=== PATIENT | male | born 1940 | race Caucasian/White ===

== ENCOUNTER → 2017-03-03 | Outpatient (CLI) | payer MEDICARE, OTHER | END | disposition home or self-care (01) | LOC: Rad HDHVI 10:32 | PROVIDERS: ATTEND Internal Medicine Cardiovascular Disease | DX: M16.0 Bilateral primary osteoarthritis of hip (principal); M25.752 Osteophyte, left hip; M25.751 Osteophyte, right hip ==

== ENCOUNTER → 2017-04-06 | Outpatient (CLI) | payer MEDICARE, OTHER ==
[2017-04-06 12:13] LABS: Urine Bilirubin Negative (Negative); Urine Blood Negative /uL (Negative); Urine Color Yellow (Yellow); Urine Glucose Normal (Normal); Urine Ketone Negative (Negative); Urine Nitrite Negative (Negative)
[2017-04-06 12:19] LABS: Basophils # (auto) 0 uL; Basophils % (auto) 0.4 % (0.0-2.0); CONDITION Y; DEFINITIVE SEE PRINTOUT; Eosinophils # (auto) 0.2 uL; Eosinophils % (auto) 3.7 % (0.0-7.0); Hematocrit 45.9 % (41.0-53.0); Hemoglobin 15.6 g/dL (13.5-17.5); Lymphocytes # (auto) 1.9 uL; Lymphocytes % (auto) 35.4 % (10.0-50.0); Mean Platelet Volume 8.2 fL (7.4-10.4); Monocytes # (auto) 0.5 uL; Monocytes % (auto) 8.8 % (0.0-12.0); Neutrophils # (auto) 2.7 uL; Neutrophils % (auto) 51.7 % (37.0-80.0); Platelet Count (auto) 281 10^3/uL (140-450); Red Cell Distribution Width 13.9 % (11.6-16.0); White Blood Cell 5.3 10^3/uL (4.4-10.8)
[2017-04-06 12:59] LABS: Alkaline Phosphatase 74 U/L (45-117); Anion Gap 7 (5-15); Aspartate Aminotransferase 14 U/L (15-37); BUN/Creatinine Ratio 21.1; Bilirubin, Direct < 0.1 mg/dL (0-0.2); Bilirubin, Total 0.3 mg/dL (0.2-1.0); Blood Urea Nitrogen 23 mg/dL (7-18); Calcium 9.5 mg/dL (8.5-10.1); Carbon Dioxide 24 mmol/L (21-32); Chloride 109 mmol/L (98-107); Cholesterol 198 mg/dL (< 200); GFR African American 85 mL/min; GFR Non-African American 70 mL/min; Glucose 89 mg/dL (74-106); HDL Cholesterol 63 mg/dL (40-59); LDL Cholesterol 119 mg/dL (< 100); Potassium 4.3 mmol/L (3.5-5.1); Sodium 140 mmol/L (136-145); Total Protein 7.2 g/dL (6.4-8.2); Triglycerides 104 mg/dL (< 150)
== END | disposition home or self-care (01) ==
LOC: LAB 08:29
PROVIDERS: ATTEND Internal Medicine Cardiovascular Disease
DX: I10 Essential (primary) hypertension (principal); E78.00 Pure hypercholesterolemia, unspecified; K74.1 Hepatic sclerosis; E11.9 Type 2 diabetes mellitus without complications; R97.20 Elevated prostate specific antigen [PSA]; E03.9 Hypothyroidism, unspecified; D64.9 Anemia, unspecified; N39.0 Urinary tract infection, site not specified
CPT/HCPCS: 36415; 80048; 80061; 80076; 81003; 82306; 83036; 84153; 84443; 85025

== ENCOUNTER → 2017-06-02 | Outpatient (CLI) | payer MEDICARE, OTHER | END | disposition home or self-care (01) | LOC: Rad HDHVI 12:53 | PROVIDERS: ATTEND Internal Medicine Cardiovascular Disease | DX: J44.9 Chronic obstructive pulmonary disease, unspecified (principal) | CPT/HCPCS: 93306 ==

== ENCOUNTER → 2017-06-09 | Outpatient (CLI) | payer MEDICARE, OTHER ==
[~2017-06-09] MED LIST: ADENOSINE 60 MG in GIVE UN-DILUTED 0 ML IV ONE; ADENOSINE 90 MG/30 ML INJ IV ONE; cloNIDine HCL 0.1 MG TAB ONE
[2017-06-09 16:40] LABS: Basophils # (auto) 0 uL; Eosinophils # (auto) 0.1 uL; Eosinophils % (auto) 2.4 % (0.0-7.0); Hemoglobin 13.9 g/dL (13.5-17.5); Lymphocytes # (auto) 1.6 uL; Lymphocytes % (auto) 29.5 % (10.0-50.0); Mean Platelet Volume 7.5 fL (6.9-10.8); Monocytes # (auto) 0.4 uL; Platelet Count (auto) 244 10^3/uL (140-450); White Blood Cell 5.3 10^3/uL (4.4-10.8)
[2017-06-09 16:42] LABS: Basophils % (auto) 0.7 % (0.0-2.0); Hematocrit 40.3 % (41.0-53.0); Mean Corpuscular Hgb Conc. 34.5 g/dL (32.0-36.0); Mean Corpuscular Volume 104.2 fL (80.0-100.0); Monocytes % (auto) 8.4 % (0.0-12.0); Neutrophils # (auto) 3.1 uL; Nucleated Red Blood Cells % 0.3 %; Red Cell Distribution Width 13.1 % (11.8-14.3)
[2017-06-09 16:48] LABS: BUN/Creatinine Ratio 21.8; Bilirubin, Total 0.6 mg/dL (0.2-1.0); Calcium 9.1 mg/dL (8.5-10.1); Potassium 4.2 mmol/L (3.5-5.1); Total Protein 7.1 g/dL (6.4-8.2)
[2017-06-09 17:03] LABS: Vitamin B12 > 2000 pg/mL (211-911)
== END | disposition home or self-care (01) ==
LOC: Rad HDHVI 08:21
PROVIDERS: ATTEND Internal Medicine Cardiovascular Disease
DX: I10 Essential (primary) hypertension (principal); E78.00 Pure hypercholesterolemia, unspecified; K74.1 Hepatic sclerosis; E11.9 Type 2 diabetes mellitus without complications; R97.20 Elevated prostate specific antigen [PSA]; R53.81 Other malaise; E03.9 Hypothyroidism, unspecified; D64.9 Anemia, unspecified; E55.9 Vitamin D deficiency, unspecified; N39.0 Urinary tract infection, site not specified; E78.5 Hyperlipidemia, unspecified; K40.90 Unilateral inguinal hernia, without obstruction or gangrene, not specified as recurrent; J44.9 Chronic obstructive pulmonary disease, unspecified; G89.29 Other chronic pain
CPT/HCPCS: 36415; 78452; 80053; 80061; 82306; 82607; 83036; 84403; 84439; 84443; 85025; 93005; 96374; 96375; A9500; J0153

== ENCOUNTER → 2017-08-26 | Outpatient (CLI) | payer MEDICARE, OTHER ==
[~2017-08-26] MED LIST changes: -ADENOSINE 60 MG in GIVE UN-DILUTED 0 ML IV ONE; -ADENOSINE 90 MG/30 ML INJ IV ONE; +KETOROLAC TROMETH 60MG/2ML VIAL IM ONE; +cloNIDine HCL 0.1 MG TAB PO ONE
[2017-08-26 11:50] VITALS: BP 185/105
[2017-08-26 12:47] VITALS: BP 171/92
== END | disposition home or self-care (01) ==
LOC: CHF HDHVI 11:55
PROVIDERS: ATTEND Internal Medicine Cardiovascular Disease
DX: I10 Essential (primary) hypertension (principal); G89.29 Other chronic pain
CPT/HCPCS: 96372; G0463; J1885

== ENCOUNTER 2020-03-27 10:32 | Inpatient (IN) | payer MEDICARE, OTHER ==
[~2020-03-27] VITALS: Ht 162.6 cm; Wt 57.7 kg
[2020-03-27] MEDS ORDERED: MORPHINE SULF INJ 2 MG/ML SYRINGE 1ML IV PRN (12:00)
[2020-03-27] MEDS ORDERED: NITROGLYCERIN 0.4 MG SL TAB SL PRN (12:00)
[2020-03-27 12:01] LABS: Basophils # (auto) 0 10 ^3/uL (0-0.2); Basophils % (auto) 0.4 % (0.0-2.0); Eosinophils # (auto) 0.1 10 ^3/uL (0-0.8); Eosinophils % (auto) 0.6 % (0.0-7.0); Hematocrit 43.2 % (41.0-53.0); Mean Corpuscular Hgb Conc. 31.8 g/dL (32.0-36.0); Monocytes # (auto) 0.9 10 ^3/uL (0-1.3)
[2020-03-27 12:07] LABS: Hemoglobin 13.8 g/dL (13.5-17.5); Lymphocytes # (auto) 1.5 10 ^3/uL (0.4-5.4); Lymphocytes % (auto) 17.1 % (10.0-50.0); Mean Corpuscular Hemoglobin 33.5 pg (28.0-32.0); Mean Corpuscular Volume 105.1 fL (80.0-100.0); Monocytes % (auto) 10.8 % (0.0-12.0); Neutrophils # (auto) 6.1 10 ^3/uL (1.6-8.6); Neutrophils % (auto) 71.1 % (37.0-80.0); Platelet Count (auto) 403 10^3/uL (140-450); Red Blood Cells 4.11 10^6/uL (4.5-5.90); Red Cell Distribution Width 14.6 % (11.8-14.3); White Blood Cell 8.5 10^3/uL (4.4-10.8)
[2020-03-27 12:13] LABS: Albumin 3.1 g/dL (3.4-5.0); Anion Gap 10 (5-15); Blood Urea Nitrogen 22 mg/dL (7-18); Calcium 9.3 mg/dL (8.5-10.1); Carbon Dioxide 20 mmol/L (21-32); Chloride 106 mmol/L (98-107); Glucose 97 mg/dL (74-106); Potassium 3.8 mmol/L (3.5-5.1); Sodium 136 mmol/L (136-145)
[2020-03-27] MEDS ORDERED: SODIUM CHLORIDE 0.9% 500 ML IVB ONE (12:16)
[2020-03-27] MEDS ORDERED: SODIUM CHLORIDE 0.9% 1,000 ML IV ONE (12:16)
[2020-03-27 12:21] LABS: Alanine Aminotransferase 19 U/L (16-61); Alkaline Phosphatase 94 U/L (45-117); Aspartate Aminotransferase 15 U/L (15-37); Bilirubin, Total 0.6 mg/dL (0.2-1.0); GFR African American 91 mL/min; GFR Non-African American 75 mL/min; Total Protein 7.2 g/dL (6.4-8.2)
[2020-03-27 12:35] LABS: BUN/Creatinine Ratio 21.6
[2020-03-27] MEDS ORDERED: CYANOCOBALAMIN (B-12) 1000 MCG/1 ML VIAL IM ONE (13:30)
[2020-03-27] MEDS: GABAPENTIN 300 MG CAP PO SCH ×2 (14:00→22:00)
[2020-03-27] MEDS: amLODIPine BESYLATE 5 MG TAB PO SCH ×2 (14:00→22:46)
[2020-03-27 14:54] LABS: INR 1.19 (0.9-1.15); Partial Thromboplastin Time 28.8 sec (23.64-32.05)
[2020-03-27 15:00] LABS: Lactic Acid w/Reflex 3.4 mmol/L (0.4-2.0)
[2020-03-27] MEDS ORDERED: HYDR-531 PO (15:14)
[2020-03-27] MEDS ORDERED: B CO PO (15:14)
[2020-03-27] MEDS ORDERED: PRAV20TA3 PO (15:14)
[2020-03-27] MEDS ORDERED: ACET-1080 PO (15:14)
[2020-03-27] MEDS ORDERED: UMEC1AER IN (15:14)
[2020-03-27] MEDS ORDERED: TAMS0.4C36 PO (15:14)
[2020-03-27] MEDS ORDERED: AMLO-483 PO (15:14)
[2020-03-27] MEDS ORDERED: LEVO-28 PO (15:14)
[2020-03-27] MEDS ORDERED: ALBUAER3 IN (15:14)
[2020-03-27] MEDS ORDERED: DOXY100C2 PO (15:14)
[2020-03-27] MEDS ORDERED: METO25TA93 PO (15:14)
[2020-03-27] MEDS ORDERED: LOSA-69 PO (15:21)
[2020-03-27] MEDS ORDERED: CYCL10TA6 PO (15:22)
--- NOTE | 2020-03-27 18:00 | NUR ---
ER ADMIT PREMA JONES ADMITTED FROM ER MEDSURG PATIENT, PATIENT ALERT TO SITUATION, UNABLE TO ANSWER QUESTIONS. NODS AND MOANS. FULL ASSESSMENT DONE, REFER TO INTERVENTION. GUTIERREZ HUNG TO GRAVITY AND DRAINING DARK MAGGIE URINE. WOUND PHOTOS TAKEN. BED ALARM ON. BED AR ITS LOWEST POSITION.
--- NOTE | 2020-03-27 18:15 | NUR ---
DR CROWE AT BED SIDE
--- NOTE | 2020-03-27 19:30 | NUR ---
Opening Shift Note Assumed care of patient, awake and confused. No S/S of distress/SOB or pain. will continue to monitor for changes Q1hr and PRN.pt is on bed alarm
--- NOTE | 2020-03-27 19:30 | NUR ---
ATTEMPTED TO CALL [facility] LISTED ON PATIENTS HARD CHART NASEEM SOSA/ROBERT COLEMAN AT [phone]//[phone] FOR ADDITIONAL ADMISSION QUESTIONS. NO ANSWER ON EITHER LINE. QUICK MESSAGE WITH BEST EXT LEFT. WILL AWAIT CALL BACK.
[2020-03-27 19:50] VITALS: BP 145/93
--- NOTE | 2020-03-27 20:00 | NUR ---
NEW ORDERS RECEIVED FROM MD NAVARRO. REFER TO ORDER HX.
[2020-03-27] MEDS: FOLIC ACID 1 MG, MULTIPLE VITAMIN 10 ML, MAGNESIUM SULF SDV 50% 8 MEQ, THIAMINE INJ 100... INJ SCH ×5 (20:07)
[2020-03-27 21:04] LABS: Alcohol, Urine < 3.0 mg/dL (0-10); Amphetamine Screen, Urine NEGATIVE (NEGATIVE); Barbiturate Scree,Urine NEGATIVE (NEGATIVE); Benzodiazephine Screen, Urine NEGATIVE (NEGATIVE); Cannabinoid Screen, Urine NEGATIVE (NEGATIVE); Cocaine Screen, Urine NEGATIVE (NEGATIVE); Phencyclidine Screen, Urine NEGATIVE (NEGATIVE)
[2020-03-27 21:12] LABS: Urine Bacteria NONE SEEN /hpf (None Seen); Urine Blood 3+ /uL (Negative); Urine Hyaline Cast MANY /lpf (0 - 2); Urine Mucus FEW (None Seen); Urine Specific Gravity 1.018 (1.001-1.035); Urine WBC 33 /hpf (0 - 3)
[2020-03-27 21:14] LABS: Opiate Scree,Urine POSITIVE (NEGATIVE)
[2020-03-27] MEDS: METOPROLOL SUCCINATE XL 50 MG TAB PO SCH (22:47)
[2020-03-27 22:50] VITALS: BP 157/105
[2020-03-28 05:48] VITALS: BP 155/109
[2020-03-28] MEDS: GABAPENTIN 300 MG CAP PO SCH ×3 (06:00→22:00)
[2020-03-28] MEDS: LORazepam 2MG/ML-1ML VIAL IV PRN ×2 (06:02→20:25)
[2020-03-28] MEDS: amLODIPine BESYLATE 5 MG TAB PO SCH ×3 (06:04→22:00)
[2020-03-28 09:00] VITALS: BP 152/101
[2020-03-28] MEDS: ENOXAPARIN SOD 40 MG/0.4 ML SYRINGE SC SCH (09:27)
[2020-03-28] MEDS: chlordiazePOXIDE HCL 25 MG CAP PO PRN (09:27)
[2020-03-28] MEDS: METOPROLOL SUCCINATE XL 50 MG TAB PO SCH (09:27)
--- NOTE | 2020-03-28 10:00 | NUR ---
DR. NAVARRO AT BED SIDE
--- NOTE | 2020-03-28 10:23 | NUR ---
IN HOUSE COVID SWAB COLLECTED AND WALKED DOWN TO LAB PER PROTOCOL
--- NOTE | 2020-03-28 10:30 | NUR ---
remote control mirror installer at bed side
[2020-03-28 10:33] LABS: Basophils # (auto) 0 10 ^3/uL (0-0.2); Basophils % (auto) 0.6 % (0.0-2.0); Eosinophils # (auto) 0 10 ^3/uL (0-0.8); Eosinophils % (auto) 0.5 % (0.0-7.0); Hematocrit 37.5 % (41.0-53.0); Hemoglobin 12.7 g/dL (13.5-17.5); Lymphocytes # (auto) 1.2 10 ^3/uL (0.4-5.4); Lymphocytes % (auto) 17.5 % (10.0-50.0); Mean Corpuscular Hemoglobin 33.5 pg (28.0-32.0); Mean Corpuscular Hgb Conc. 33.9 g/dL (32.0-36.0); Mean Corpuscular Volume 98.8 fL (80.0-100.0); Monocytes # (auto) 0.6 10 ^3/uL (0-1.3); Monocytes % (auto) 8.8 % (0.0-12.0); Neutrophils % (auto) 72.6 % (37.0-80.0); Platelet Count (auto) 350 10^3/uL (140-450); Red Cell Distribution Width 14.5 % (11.8-14.3); White Blood Cell 6.9 10^3/uL (4.4-10.8)
--- NOTE | 2020-03-28 10:38 | NUR ---
WOUND CARE NOTE: Wound care in to see patient per wound care request regarding "Rt Buttock wound" that are noted present on admission. Bedside nurse took photograph of patient's wounds upon admission for reference. Patient is 79 years old male with admitting diagnosis of Severe Deconditioning, Delirium Tremens. Patient is resting in bed in Rm. 288A. Patient's eyes are closed, respond to verbal and tactile stimuli. Patient appears to be in no pain using Ortiz Nicholson Faces Pain Scale. He's resisting turning and repositioning and his Ronal score is 11. Skin assessment done with the assistance of patient's nurse, JESUS Thurman. Patient noted with 1.5x1cm open partial thickness skin tear to Rt posterolateral hip/buttock area. Wound is red with pink myla wound, no drainage/odor noted. Cleansed patient's Rt buttock skins tear with NS,patted dry with gauze, applied Thera honey gel and covered with Opti foam gentle dressing. Patient's sacral, buttock applied with Barrier cream as preventative. Intact pink scar tissue from old incision noted to his Rt lateral hip. Patient's posterior back has well approximated incision with intact sutures, area is clean and dry,left open to air. Patient tolerated well, repositioned for comfort facing his Rt side, redistributed pressure points with pillows. Bed in low position, bed alarm on. RECOMMENDATION: Nursing to continue with Q3D/PRN dressing change to R hip/buttock skin tear, BID/PRN cleaning and application of Barrier cream to sacral, buttocks per MD order, frequent turning and repositioning schedule as condition permits,redistribute pressure points with pillows, continue monitoring by wound care while patient is hospitalized. Addendum: 03/28/20 at 1324 by María Sterling RN Amended: Links added.
[2020-03-28 10:48] LABS: Albumin 3.1 g/dL (3.4-5.0); Calcium 8.7 mg/dL (8.5-10.1); Potassium 3.8 mmol/L (3.5-5.1)
[2020-03-28 10:52] LABS: BUN/Creatinine Ratio 31.6; Bilirubin, Total 0.6 mg/dL (0.2-1.0); Total Protein 6.3 g/dL (6.4-8.2)
[2020-03-28] MEDS: FOLIC ACID 1 MG, MULTIPLE VITAMIN 10 ML, MAGNESIUM SULF SDV 50% 8 MEQ, THIAMINE INJ 100... INJ SCH ×5 (12:07)
--- NOTE | 2020-03-28 12:14 | NUR ---
RE SOCIAL SERVICE CONSULT RECEIVED CALL FROM ELMA EUCEDA, STATING SHE HAS SPOKEN TO JESSICA (PATIENTS ) AND PER JARED'S REQUEST NEED UPDATE ON PENDING PICC LINE CONSULT AND NUTRITION STATUS BEFORE PATIENT IS DISCHARGED TO SNF. UPDATED ELMA ON PENDING PICC LINE PLACEMENT WELL NEURO CONSULT FOR MENTATION ASSESSMENT. WILL CALL MD TO INFORM FAMILYS CONCERNS.
--- NOTE | 2020-03-28 12:20 | NUR ---
DETAILED MESSAGE SENT TO MD NAVARRO IN REGARDS OF PICC LINE ORDER/NEEDING PHYSICIAN SIGNATURE, FAMILY'S REQUEST FOR TPN, AND NEED FOR SPECIFIC NEEDS LISTED FOR SNF ARRANGEMENT THROUGH VIDEO EFFECTS EDITOR. WILL AWAIT CALL BACK FROM .
--- NOTE | 2020-03-28 12:23 | NUR ---
Elevated BP. Call out to Dr. Renae in regards of elevated BP in despite of [facility] am med. No PRN available. Will await call back from
--- NOTE | 2020-03-28 12:30 | NUR ---
Assessment Patient is a 79-year-old male who is confused. Assessment was completed with patient Ana . Per Ana prior to admission patient live with her and functioned with assistance. Per Ana patient has a walker, cane, bed side commode, wheelchair and hospital for home use. Per Ana patient does not have home oxygen at this time. Per Ana she helps patient with his ADLs. Per Ana patient has not been eating and his primary doctor Mary recommended for her to bring patient to the hospital to evaluate patient because he has not been able to eat or swallow. Advised Ana there is a social service consult for SNF placement. Per Ana patient PCP recommended a SNF out of area and she will let me know which facility it is once she finds out. Per Ana she does not want patient to be discharge until they know why patient is not eating or swallowing. Informed Ana I will inform bedside nurse and doctor her concerns. Informed Ana she has the right to participate in all discharge planning. Ana verbalized understanding and agreed to discharge plan. Informed JESUS Thurman patient concerns. Per JESUS Thurman she will communicate it to Dr. Renae. Per JESUS Thurman there is more consults pending before patient can be discharge. Addendum: 03/28/20 at 1233 by ELMA FAUSTIN Amended: Links added.
[2020-03-28 13:00] VITALS: BP 164/111
--- NOTE | 2020-03-28 14:18 | NUR ---
MD NAVARRO AWARE OF FAMILYS CONCERNS, AND SENIOR LIBRARIAN NEEDS. PER MD, HE WILL GET BACK TO RN WITH RESPONSE TO ISSUES ADDRESSED AT A LATER TIME TODAY. WILL AWAIT CALL.
--- NOTE | 2020-03-28 14:22 | NUR ---
NEW ORDERS RECEIVED VIA TELEPHONE FOR BP CONTROL. REFER TO ORDER HX.
[2020-03-28] MEDS: hydrALAZINE HCL 20 MG/ML VL IV PRN ×2 (14:43→20:25)
--- NOTE | 2020-03-28 15:00 | NUR ---
TWO RN CONSENT FOR PICC CALL TO JARED AT [phone] TO OBTAIN CONSENT TO PICC ORDER PATIENT UNABLE TO CONSENT AT THIS TIME DUE TO ALTERED MENTAL STATUS. NO ANSWER AT THIS TIME, VOICEMAIL LEFT WITH BEST EXTENSION. WILL AWAIT CALL BACK.
--- NOTE | 2020-03-28 15:00 | NUR ---
Attempted PT eval at 1440 pt's BP was 160/110. RN medicated pt and returned at 1515, pt's BP improved to 131/77 but pt is unable to follow commands to allow for application of lumbar brace. Will attempt again tomorrow if pt is able to participate.
[2020-03-28 16:53] VITALS: BP 162/109
[2020-03-28] MEDS ORDERED: TPN PER PHARMACY 0 ML IV SCH (18:30)
--- NOTE | 2020-03-28 18:31 | NUR ---
RECEIVED CALL FROM MD TORRES WHO IS PATIENTS PCP. MD IS QUESTIONING WHY TPN HAS NOT BEEN STARTED, MADE AWARE OF ACTIVE TPN ORDER. ORDER TO START TPN PER PHARMACY RECEIVED, WILL IMPLEMENT.
--- NOTE | 2020-03-28 18:33 | NUR ---
TPN CALL TO PHARMACY TO INFORM OF NEW TPN ORDER, NO CENTRAL LINE AVAILABLE YET, THEREFORE CLINIMIX WILL BE STARTED TONIGHT AT 1999 THROUGH PERIPHERAL UNTIL PICC PLACEMENT.
[2020-03-28] MEDS: METOPROLOL TARTRATE 50 MG TAB PO SCH ×2 (18:36→22:00)
--- NOTE | 2020-03-28 19:29 | NUR ---
CARE ENDORSED TO NOC SHIFT RN ANISA RN AWARE OF NEED FOR PHYSICIAN/FAMILY CONSENT FOR PICC PLACEMENT. RN AWARE OF NEED FOR PHYSICIAN TO UPDATE SOCIAL SERVICE CONSULT WITH SPECIFIC NEEDS FOR PATIENT. \ PATIENT LAYING IN BED WITH EVEN AND UNLABORED RESPIRATIONS. NO S/S OF PAIN OR DISTRESS AT THIS TIME.
[2020-03-28] MEDS ORDERED: AMINO ACID INFUSION IN D10W 1,000 ML IV SCH (20:00)
[2020-03-28 22:49] VITALS: BP 160/110
--- NOTE | 2020-03-29 03:13 | NUR ---
.1900. 03/28/20. OBTAINED REPORT AND ASSUMED CARE OF PATIENT. 1929. PATIENT SEEN WITH GENERALIZED TREMORS AND GRABBING. 2024. MEDICATED WITH ATIVAN FOR RESTLESSNESS AND HYDRALAZINE FOR [id number] 2129. PATIENT MORE RESTFUL. 2300. PATIENT SLEEPING. 0010. 03/29/20. BP 150/88, HR 85 0300. PATIENT SLEEPING NOW. CALM. IVF NFUSING
[2020-03-29] MEDS: GABAPENTIN 300 MG CAP PO SCH ×3 (05:37→22:00)
[2020-03-29] MEDS: amLODIPine BESYLATE 5 MG TAB PO SCH ×3 (05:38→22:00)
[2020-03-29 05:42] VITALS: BP 113/63
--- NOTE | 2020-03-29 07:45 | NUR ---
Opening Shift Note Assumed care of patient, awake and alert. No S/S of distress/SOB or pain. Bed in lowest/locked position, bed rails up x2, call light within reach. Will continue to monitor for changes Q1hr and PRN.pt is on bed alarm
[2020-03-29 07:49] LABS: Basophils # (auto) 0 10 ^3/uL (0-0.2); Basophils % (auto) 0.5 % (0.0-2.0); Eosinophils # (auto) 0.1 10 ^3/uL (0-0.8); Eosinophils % (auto) 1.1 % (0.0-7.0); Hematocrit 30.7 % (41.0-53.0); Hemoglobin 10.4 g/dL (13.5-17.5); Lymphocytes # (auto) 1.2 10 ^3/uL (0.4-5.4); Lymphocytes % (auto) 19.4 % (10.0-50.0); Mean Corpuscular Hemoglobin 33.8 pg (28.0-32.0); Mean Corpuscular Hgb Conc. 33.9 g/dL (32.0-36.0); Mean Corpuscular Volume 99.8 fL (80.0-100.0); Monocytes # (auto) 0.8 10 ^3/uL (0-1.3); Monocytes % (auto) 12.7 % (0.0-12.0); Neutrophils % (auto) 66.3 % (37.0-80.0); Nucleated Red Blood Cells % 0.1 %; Platelet Count (auto) 313 10^3/uL (140-450); Red Blood Cells 3.08 10^6/uL (4.5-5.90); Red Cell Distribution Width 14.6 % (11.8-14.3)
[2020-03-29 08:12] LABS: Albumin 2.6 g/dL (3.4-5.0); Calcium 8.3 mg/dL (8.5-10.1); Magnesium 2.3 mg/dL (1.6-2.6); Potassium 3.1 mmol/L (3.5-5.1)
[2020-03-29 08:16] LABS: Bilirubin, Total 0.6 mg/dL (0.2-1.0); Phosphorus 2.2 mg/dL (2.5-4.90); Total Protein 5.5 g/dL (6.4-8.2)
[2020-03-29 09:00] VITALS: BP 117/63
[2020-03-29] MEDS ORDERED: POTASSIUM PHOSPHATE 44 MEQ in D5W 5% 250 ML IV ONE (10:00)
--- NOTE | 2020-03-29 10:00 | NUR ---
MD ROUNDS DR NAVARRO AT BEDSIDE DISCUSSING POC WITH THIS RN. PICC CONSENTS SIGNED, TRANSFER PAPERS SIGNED. WILL CONTINUE TO MONITOR
--- NOTE | 2020-03-29 10:58 | NUR ---
PICC line placement Patient significant other educated on need for PICC line placement. All risks and benefits explained and all questions and concerns addressed prior to procedure. Noted past medical history and allergies with no contraindications. INR and Plt counts within acceptable range. 5 fr PICC line inserted via right brachial vein using [employer] US and Tip Location System. Sterile technique with maximum barrier precautions utilized. Blood return obtained from each of the 2 lumens and each flushed easily with NS using proper technique. PICC secured with Stat-lock; biodisc and occlusive dressing applied. Stat portable chest x-ray obtained for PICC tip placement. *Baseline Arm Circumference 27 cm. Internal length 37 cm. External length 0 cm. PICC lot #[id number]
[2020-03-29] MEDS ORDERED: LIDOCAINE 1% (LOCAL ANESTH.) PF 5ml SDV ID ONE (11:00)
--- NOTE | 2020-03-29 11:30 | NUR ---
Okay to use PICC line Xray completed and reviewed. Okay to use PICC line. Katie LEE notified.
[2020-03-29] MEDS: METOPROLOL TARTRATE 50 MG TAB PO SCH ×2 (11:33→22:00)
[2020-03-29] MEDS: ENOXAPARIN SOD 40 MG/0.4 ML SYRINGE SC SCH (11:33)
[2020-03-29] MEDS: LORazepam 2MG/ML-1ML VIAL IV PRN (11:34)
--- NOTE | 2020-03-29 12:51 | NUR ---
Nutrition Consult/ Assessment Notes please see attached link for complete assessment [employer] needs BW 54 [id number] kcals (25-30 kcal/kgBW), Est Protein needs: 54-64 gms/day (1.0-1.2 gm/kgBW). Will continue to monitor and reassess prn. Addendum: 03/29/20 at [address] Amended: Links added.
[2020-03-29 13:00] VITALS: BP 160/87
[2020-03-29] MEDS: FOLIC ACID 1 MG, MULTIPLE VITAMIN 10 ML, MAGNESIUM SULF SDV 50% 8 MEQ, THIAMINE INJ 100... INJ SCH ×5 (13:36)
--- NOTE | 2020-03-29 14:00 | NUR ---
MEDS PATIENT REFUSING MEDS AT THIS TIME. EDUCATED PATIENT ON MEDICATIONS. PATIENT CONTINUES TO REFUSE
--- NOTE | 2020-03-29 15:30 | NUR ---
PT IS NOT FOLLOWING DIRECTIONS AND IS NOT ABLE TO PARTICIPATE IN P.T. EVALUATION TODAY. ATTEMPT P.T. TOMORROW.
[2020-03-29 16:30] VITALS: BP 156/93
[2020-03-29] MEDS: hydrALAZINE HCL 20 MG/ML VL IV PRN (16:36)
[2020-03-29] MEDS ORDERED: DEXTROSE (50%) 50ML SYRG IV SCH (20:00)
[2020-03-29] MEDS ORDERED: TPN PER PHARMACY IV NR ×8 (20:00)
--- NOTE | 2020-03-29 20:27 | NUR ---
1899. REPORT OBTAINED MIKE ARAIZA RN. PATIENT CARE SUMMED. 1999. PATIENT MET IN HIS ROOM. CALM ON HIS BED. MINIMAL TREMORS OF HANDS. ABLE TO COMMUNICATE.
--- NOTE | 2020-03-29 20:29 | NUR ---
TPN INFUSION COMMENCED VIA PICC LINE.
[2020-03-29] MEDS: SODIUM CHLOR 0.9% PF (SALINE LOCK) 10ML VIAL/SYR IV SCH (22:00)
[2020-03-30] MEDS: ACCU-CHEK COMFORT CURVE STRIP VI SCH ×4 (00:05→17:20)
[2020-03-30] MEDS: InsuLIN REG 1unit/0.01ml Soln (100units/ml) SC SCH ×4 (00:10→17:20)
--- NOTE | 2020-03-30 00:27 | NUR ---
1899. 03/29/20. RECEIVED REPORT ON PATIENT AND ASSUMED CARE. 03/29/20. PATIENT SEEN. ALERT. ABLE TO COMMUNICATE. KNOWS HIS NAME AND WHERE HE IS. ASSISTED WITH REPOSITIONING.
[2020-03-30] MEDS: GABAPENTIN 300 MG CAP PO SCH ×3 (05:51→21:13)
[2020-03-30] MEDS: amLODIPine BESYLATE 5 MG TAB PO SCH ×3 (05:52→21:09)
--- NOTE | 2020-03-30 06:07 | NUR ---
PATIENT SLEPT WELL. NOW AWAKE WITH MINIMAL TREMBLING OF THE HANDS. WAS ABLE TO SWALLOW HIS CRUSHED MEDICATIONS.
[2020-03-30 07:23] LABS: Albumin 2.5 g/dL (3.4-5.0); Calcium 7.9 mg/dL (8.5-10.1); Potassium 3.3 mmol/L (3.5-5.1)
[2020-03-30 07:27] LABS: BUN/Creatinine Ratio 32.3; Bilirubin, Total 0.7 mg/dL (0.2-1.0); Phosphorus 2.4 mg/dL (2.5-4.90); Pre Albumin 12.6 mg/dL (20.0-40.0); Total Protein 5.7 g/dL (6.4-8.2)
--- NOTE | 2020-03-30 08:50 | NUR ---
MD ROUNDS DR TORRES AT BEDSIDE DISCUSSING POC WITH THIS RN AND PATIENT. PATIENT ABLE TO STATE WHO DR TORRES IS. NEW ORDERS RECEIVED/WILL CARRY OUT. WILL CONTINUE TO MONITOR
[2020-03-30 09:00] VITALS: BP 138/80
[2020-03-30] MEDS: SODIUM CHLOR 0.9% PF (SALINE LOCK) 10ML VIAL/SYR IV SCH ×2 (09:41→21:13)
[2020-03-30] MEDS: METOPROLOL TARTRATE 50 MG TAB PO SCH ×2 (09:41→21:12)
[2020-03-30] MEDS: ENOXAPARIN SOD 40 MG/0.4 ML SYRINGE SC SCH (09:41)
[2020-03-30] MEDS: chlordiazePOXIDE HCL 25 MG CAP PO PRN ×2 (09:42→21:13)
[2020-03-30] MEDS ORDERED: POTASSIUM PHOSP 26.4MEQ(18MMOL) IN NS 100 ML IV ONE (12:00)
--- NOTE | 2020-03-30 13:00 | NUR ---
PHYSICAL THERAPY PATIENT SITTING IN CHAIR WITH PHYSICAL THERAPY ASSISTANCE. PATIENT SHOWING NO S/S OF DISTRESS, SOB NO C/O PAIN. WILL CONTINUE TO MONITOR
[2020-03-30] MEDS: FOLIC ACID 1 MG, MULTIPLE VITAMIN 10 ML, MAGNESIUM SULF SDV 50% 8 MEQ, THIAMINE INJ 100... INJ SCH ×5 (14:31)
--- NOTE | 2020-03-30 15:28 | NUR ---
DR TORRES LEFT A MESSAGE WITH DR TORRES RE: FAMILY REQUESTING PATIENT TO BE DISCHARGED HOME. FAMILY REQUESTING MEDICATIONS TO BE PRESCRIBED UPON DISCHARGE. WILL AWAIT RETURN CALL
[2020-03-30 17:00] VITALS: BP 135/80
[2020-03-30] MEDS: TPN PER PHARMACY IV NR ×9 (20:24)
[2020-03-30 21:48] VITALS: BP 103/74
[2020-03-30] MEDS ORDERED: LORazepam 2MG/ML-1ML VIAL IV PRN (23:15)
[2020-03-31] MEDS: ACCU-CHEK COMFORT CURVE STRIP VI SCH ×4 (00:16→17:03)
[2020-03-31 05:00] VITALS: BP 146/86
[2020-03-31] MEDS: InsuLIN REG 1unit/0.01ml Soln (100units/ml) SC SCH ×4 (05:28→17:02)
[2020-03-31] MEDS: GABAPENTIN 300 MG CAP PO SCH ×3 (06:38→22:00)
[2020-03-31] MEDS: amLODIPine BESYLATE 5 MG TAB PO SCH ×3 (06:39→22:00)
[2020-03-31 06:42] LABS: Potassium 3.5 mmol/L (3.5-5.1)
[2020-03-31 06:48] LABS: Albumin 2.3 g/dL (3.4-5.0); BUN/Creatinine Ratio 29.2; Bilirubin, Total 0.5 mg/dL (0.2-1.0); Calcium 7.9 mg/dL (8.5-10.1); Magnesium 2.2 mg/dL (1.6-2.6); Total Protein 5.5 g/dL (6.4-8.2)
--- NOTE | 2020-03-31 07:30 | NUR ---
Opening Shift Note Assumed care of patient, awake and alert. No S/S of distress/SOB or pain. Bed in lowest/locked position, bed rails up x2, call light within reach, bed alarm on. Will continue to monitor for changes Q1hr and PRN.
[2020-03-31 09:00] VITALS: BP 118/62
[2020-03-31] MEDS: SODIUM CHLOR 0.9% PF (SALINE LOCK) 10ML VIAL/SYR IV SCH ×2 (10:01→22:25)
[2020-03-31] MEDS: METOPROLOL TARTRATE 50 MG TAB PO SCH ×2 (10:01→22:00)
[2020-03-31] MEDS: ENOXAPARIN SOD 40 MG/0.4 ML SYRINGE SC SCH (10:02)
--- NOTE | 2020-03-31 11:54 | NUR ---
EEG- UNABLE TO COMPLETE, PATIENT RESTLESS THROUGHOUT THE ENTIRE TEST CAUSING TOO MANY ARTIFACTS. WILL ATTEMPT AGAIN TOMORROW ON 04/01/2020.
--- NOTE | 2020-03-31 12:15 | NUR ---
PHYSICAL THERAPY PATIENT SITTING IN CHAIR WITH PHYSICAL THERAPY ASSISTANCE. PATIENT SHOWING NO S/S OF DISTRESS, SOB NO C/O PAIN. WILL CONTINUE TO MONITOR
--- NOTE | 2020-03-31 12:59 | NUR ---
DR TORRES SPOKE WITH DR TORRES RE: FAMILY REQUESTING PATIENT TO BE DISCHARGED HOME. FAMILY REQUESTING [facility]. FAMILY REQUESTING MEDICATIONS TO BE PRESCRIBED UPON DISCHARGE. PER DR TORRES; HE WILL CONFIRM WITH FAMILY
[2020-03-31 13:00] VITALS: BP 121/71
[2020-03-31] MEDS: FOLIC ACID 1 MG, MULTIPLE VITAMIN 10 ML, MAGNESIUM SULF SDV 50% 8 MEQ, THIAMINE INJ 100... INJ SCH ×5 (13:37)
--- NOTE | 2020-03-31 14:14 | NUR ---
Nutrition Followup Note Wt 55.5kg Pt was sleeping at time of rounds. Pt diet advanced to mech soft/pureed per MD order. Pt with poor po intake since diet is advanced. Pt with TPN at 57 ml/hr to provide 1460 kcal and 60g. This provides 90-108% of energy needs and 94-111% of protein needs. Est Energy needs BW 54 [id number] kcals (25-30 kcal/kgBW), Est Protein needs: 54-64 gms/day (1.0-1.2 gm/kgBW). Will continue to monitor and reassess prn. Labs: BUN 19H, Creat 0.65L, Gluc 116H, Alb 2.3L, CA 7.9L BM: pt with no BMs noted per Rn note Skin: BS 11 high risk, full details in skin care technician note PES: Altered nutrition related lab values r.t current chronic medical condition aeb elev BUN mod hypoalb Increased nutrient needs r/t current mental condition aeb pt`s on PN support with poor PO Comments 1)advance PN support to meet > 75% of needs if PO continues to be low 2) continue assistance with meals 3) consider megace for appetite 4) consider ensure enlive 1 carton tid 5) continue current plan of care Expected Outcomes/Goals: pt will get > 75% of needs pt will have adequate PO F/u high 2-3 days
--- NOTE | 2020-03-31 14:54 | NUR ---
WOUND CARE/PHYSICAL THERAPY PATIENT RETURNED TO BED BY P.T. PATIENT TOLERATED WELL. WOUND CARE PERFORMED PER TRAFFIC OFFICER RECOMMENDATIONS. PATIENT REPOSITIONED TO LEFT SIDE. WILL CONTINUE TO MONITOR
--- NOTE | 2020-03-31 16:10 | NUR ---
FAMILY SPOKE WITH JARED RE: HOME HEALTH REQUEST. PER JARED; [facility] NOT [facility]. JARED WOULD PREFER [facility]. WILL CONTINUE TO MONITOR
[2020-03-31 16:47] VITALS: BP 133/84
--- NOTE | 2020-03-31 18:27 | NUR ---
DR TORRES RECEIVED CALL FROM DR TORRES RE: PATIENT'S FAMILY WISHES FOR PATIENT TO RETURN HOME WITH [facility]. WILL CONTINUE TO MONITOR
[2020-03-31] MEDS: TPN PER PHARMACY IV NR ×18 (19:58→20:20)
[2020-03-31 21:30] VITALS: BP 140/85
[2020-04-01] MEDS: ACCU-CHEK COMFORT CURVE STRIP VI SCH ×4 (00:20→18:53)
[2020-04-01 05:00] VITALS: BP 133/78
[2020-04-01] MEDS: InsuLIN REG 1unit/0.01ml Soln (100units/ml) SC SCH ×4 (05:17→18:00)
[2020-04-01] MEDS: amLODIPine BESYLATE 5 MG TAB PO SCH ×3 (05:28→22:26)
[2020-04-01] MEDS: GABAPENTIN 300 MG CAP PO SCH ×3 (05:28→22:25)
[2020-04-01 07:14] LABS: Potassium 4.1 mmol/L (3.5-5.1)
[2020-04-01 07:22] LABS: Albumin 2.1 g/dL (3.4-5.0); BUN/Creatinine Ratio 31.3; Bilirubin, Total 0.4 mg/dL (0.2-1.0); Calcium 7.7 mg/dL (8.5-10.1); Magnesium 2.2 mg/dL (1.6-2.6); Phosphorus 3.5 mg/dL (2.5-4.90); Total Protein 5.3 g/dL (6.4-8.2)
[2020-04-01 09:00] VITALS: BP 144/77
--- NOTE | 2020-04-01 09:00 | NUR ---
at Station Dr. Hernandez at station. Per , patient to be discharged with home health for TPN.
--- NOTE | 2020-04-01 09:29 | NUR ---
Called SS Left message with Soheila regarding discharge planning.
--- NOTE | 2020-04-01 09:40 | NUR ---
at Bedside/Station Dr. Renae at bedside with patient. called, password confirmed. MD updated of plan of care.
--- NOTE | 2020-04-01 09:50 | NUR ---
Up with PT Patient up to chair with physical therapy. Safety precautions in place, call light within reach.
[2020-04-01] MEDS: SODIUM CHLOR 0.9% PF (SALINE LOCK) 10ML VIAL/SYR IV SCH ×2 (10:32→22:24)
[2020-04-01] MEDS: ENOXAPARIN SOD 40 MG/0.4 ML SYRINGE SC SCH (10:33)
[2020-04-01] MEDS: METOPROLOL TARTRATE 50 MG TAB PO SCH ×2 (10:33→22:25)
[2020-04-01 13:00] VITALS: BP 139/78
[2020-04-01] MEDS: FOLIC ACID 1 MG, MULTIPLE VITAMIN 10 ML, MAGNESIUM SULF SDV 50% 8 MEQ, THIAMINE INJ 100... INJ SCH ×5 (13:14)
--- NOTE | 2020-04-01 13:55 | NUR ---
Patient Off Unit Patient off unit for MRI.
--- NOTE | 2020-04-01 14:06 | NUR ---
Linen Change Total linen change.
--- NOTE | 2020-04-01 14:10 | NUR ---
Called SS Left message for Soheila regarding patient's plan of care.
--- NOTE | 2020-04-01 14:20 | NUR ---
Patient Returned to Unit Patient returned to unit. Currently laying supine, HOB 30degrees. No signs of distress at this time. Respirations even and unlabored. Safety precautions in place. Will continue to monitor.
--- NOTE | 2020-04-01 15:18 | NUR ---
ALBIN Spoke with ALBIN Parnell to update on MD plan of care. Per patient's , [facility] will be able to continue TPN once patient is discharged. Soheila made aware, will confirm with Krystal Castro when MD places orders tomorrow. Per patient family request, inquired about transportation, per Soheila transport would not be covered by insurance, if transport is to be set up, patient/family would be responsible for payment.
--- NOTE | 2020-04-01 15:45 | NUR ---
EEG-UNABLE TO COMPLETE ELECTROENCEPHALOGRAM DUE TO ARTIFACTS. PATIENT IS RESTLESS AND UNABLE TO HOLD STILL.
[2020-04-01 17:00] VITALS: BP 162/86
--- NOTE | 2020-04-01 17:59 | NUR ---
Ellis Catheter Per MD request, ellis catheter changed. Patient tolerated catheter removal well, no signs of distress noted at time, respirations even and unlabored. New ellis inserted, 16Fr, patient tolerated well. Patient reported minimal discomfort. Ellis is draining clear, yellow urine with sediment noted. Sterile technique used. Ellis is secured and hanging below bladder. No signs of distress at this time. Safety precautions in place, will continue to monitor.
--- NOTE | 2020-04-01 18:00 | NUR ---
IV Removed Left AC IV removed due to signs of infiltration. No distress at this time. Respirations even and unlabored. Safety precautions in place. Call light within reach. Will continue to monitor.
[2020-04-01] MEDS ORDERED: TPN PER PHARMACY IV NR ×9 (20:00)
[2020-04-01] MEDS: TPN PER PHARMACY IV NR ×9 (20:08)
[2020-04-01 22:00] VITALS: BP 163/85
[2020-04-02] MEDS: ACCU-CHEK COMFORT CURVE STRIP VI SCH ×3 (00:16→12:05)
[2020-04-02 05:38] VITALS: BP 152/91
[2020-04-02] MEDS: InsuLIN REG 1unit/0.01ml Soln (100units/ml) SC SCH ×3 (06:00→12:05)
[2020-04-02] MEDS: GABAPENTIN 300 MG CAP PO SCH ×2 (06:30→14:30)
[2020-04-02] MEDS: amLODIPine BESYLATE 5 MG TAB PO SCH ×2 (06:31→14:30)
[2020-04-02 08:06] LABS: Albumin 2.2 g/dL (3.4-5.0); Calcium 8.2 mg/dL (8.5-10.1); Magnesium 2.2 mg/dL (1.6-2.6); Potassium 4.2 mmol/L (3.5-5.1)
[2020-04-02 08:09] LABS: BUN/Creatinine Ratio 27.3; Bilirubin, Total 0.4 mg/dL (0.2-1.0); Phosphorus 3.6 mg/dL (2.5-4.90); Total Protein 5.6 g/dL (6.4-8.2)
[2020-04-02 09:00] VITALS: BP 103/73
[2020-04-02] MEDS: ENOXAPARIN SOD 40 MG/0.4 ML SYRINGE SC SCH (10:24)
[2020-04-02] MEDS: SODIUM CHLOR 0.9% PF (SALINE LOCK) 10ML VIAL/SYR IV SCH (10:24)
[2020-04-02] MEDS: METOPROLOL TARTRATE 50 MG TAB PO SCH (10:24)
[2020-04-02] MEDS: FOLIC ACID 1 MG, MULTIPLE VITAMIN 10 ML, MAGNESIUM SULF SDV 50% 8 MEQ, THIAMINE INJ 100... INJ SCH ×5 (12:04)
[2020-04-02 13:00] VITALS: BP 111/75
--- NOTE | 2020-04-02 16:47 | NUR ---
D/C Planning Regarding social service consult for home health TPN, Safety evaluation and physical therapy. Faxed clinical information to [facility]. Per Radha with [facility] they will resume service within 24-48hrs upon d.c day. Informed bedside nurse.
[2020-04-02 17:00] VITALS: BP 151/93
--- NOTE | 2020-04-02 17:45 | NUR ---
Discharge Went over discharge paperwork with patient. Will go over it again with his when she arrives to pick him up. PICC line left in - patient going home on home health for TPN. [facility] left in as patient arrived with the [facility]. No telemetry, patient is Med Surg. No new prescriptions. Patient advised to follow up with primary care doctor within one week, contact information provided. Pictures taken of all wounds.
[2020-04-02] MEDS ORDERED: TPN PER PHARMACY IV NR ×9 (20:00)
== END 2020-04-02 18:00 | disposition home health service (06) | DRG 896 ==
LOC: ER 10:32 → OVERFLOW 10:33 → WEST WING 18:12
PROVIDERS: ADMIT Internal Medicine Cardiovascular Disease; ATTEND Internal Medicine
PROC: 05HY33Z Insertion of Infusion Device into Upper Vein, Percutaneous Approach (ICD-10-PCS; principal; 2020-03-29)
DX: F10.231 Alcohol dependence with withdrawal delirium (principal); G93.41 Metabolic encephalopathy; E44.1 Mild protein-calorie malnutrition; E51.2 Wernicke's encephalopathy; E86.0 Dehydration; D75.89 Other specified diseases of blood and blood-forming organs; G89.29 Other chronic pain; M19.90 Unspecified osteoarthritis, unspecified site; M51.36 Other intervertebral disc degeneration, lumbar region; R29.810 Facial weakness; R62.7 Adult failure to thrive; Z96.649 Presence of unspecified artificial hip joint; I10 Essential (primary) hypertension; J44.9 Chronic obstructive pulmonary disease, unspecified; N40.0 Benign prostatic hyperplasia without lower urinary tract symptoms; E78.5 Hyperlipidemia, unspecified; Z79.899 Other long term (current) drug therapy; Z88.8 Allergy status to other drugs, medicaments and biological substances; Z90.49 Acquired absence of other specified parts of digestive tract; Z68.21 Body mass index [BMI] 21.0-21.9, adult; Z20.828 Contact with and (suspected) exposure to other viral communicable diseases; Y90.9 Presence of alcohol in blood, level not specified; M47.817 Spondylosis without myelopathy or radiculopathy, lumbosacral region
CPT/HCPCS: 36415; 36569; 70450; 70551; 71045; 73200; 80053; 80307; 81001; 82040; 82962; 83605; 83735; 84100; 84443; 84478; 84484; 85025; 85610; 85730; 87040; 87086; 93005; 96365; 96375; 97116; 97163; 97530; G0378; J1815; J7060